=== PATIENT | female | born 2000 | race African-American/Black ===

== ENCOUNTER 2019-11-18 03:03 | Emergency (ER) | payer MEDICAID, OTHER ==
[~2019-11-18] VITALS: Ht 170.2 cm; Wt 114.7 kg
[2019-11-18] MEDS ORDERED: IPRATROPIUM 0.5MG/ALBUTEROL 2.5MG INH SOL UD 3ML (DUONEB)(J7620) NEB ONE (04:30)
[2019-11-18] MEDS ORDERED: ALBUTEROL 90 MCG/ACT 8GM HFA INHALER INH ONE (05:45)
[2019-11-18 05:49] VITALS: BP 110/58
--- NOTE | 2019-11-18 07:05 | REP ---
Clinical: Cough . Comparison: None . Technique: PA and lateral. Findings: The mediastinum and cardiac silhouette are normal. The lung causey are clear and without acute consolidation, effusion, or pneumothorax. The skeletal structures are intact and normal. Impression: 1. No acute cardiopulmonary process. Electronically Signed by Cristian Beth MD 11/18/2019 06:57 A
--- NOTE | 2019-11-19 14:21 | ECGEPIP ---
[facility] - ED Test Date: 2019-11-18 Pat Name: BROOK MARTINEZ Department: Room: - Gender: Female Pr Manager: AWILDA : 2000 Requested By: JOHANN Lees Order Number: [id number] Reading MD: Tonio Waller Measurements Intervals [place] Rate: 87 P: 53 MI: 161 QRS: 27 QRSD: 79 T: 29 QT: 356 QTc: 430 Interpretive Statements SINUS RHYTHM Comparison tracing not on file Electronically Signed on 11-19-2019 14:20:52 EST by Tonio Waller
== END 2019-11-18 05:50 | disposition home or self-care (01) ==
LOC: M ED 03:03
DX: J20.9 Acute bronchitis, unspecified (principal); F41.9 Anxiety disorder, unspecified

== ENCOUNTER → 2020-01-21 | Outpatient (REF) | payer OTHER | LOC: M LAB REF 16:40 | PROVIDERS: ATTEND Physician Assistant | DX: J02.9 Acute pharyngitis, unspecified (principal) ==

== ENCOUNTER → 2020-07-16 | Outpatient (REF) | payer OTHER ==
[~2020-07-16] MED LIST: MAGICMW SSP; METR-265 PO; VENTAER INH
[2020-07-16 17:04] LABS: CHLAMYDIA DNA AMPLIFICATION NEGATIVE (NEGATIVE); GC DNA AMPLIFICATION NEGATIVE (NEGATIVE)
== END ==
LOC: M LAB REF 12:00
PROVIDERS: ATTEND Physician Assistant Medical
DX: Z20.2 Contact with and (suspected) exposure to infections with a predominantly sexual mode of transmission (principal)

== ENCOUNTER 2020-07-17 08:31 | Emergency (ER) | payer OTHER ==
[~2020-07-17] VITALS: Ht 172.7 cm; Wt 119.2 kg
[2020-07-17] MEDS ORDERED: METR-265 PO (08:41)
[2020-07-17 11:03] LABS: HEPATITIS B SURFACE ANTIBODY POSITIVE (POSITIVE); HEPATITIS B SURFACE ANTIGEN NEGATIVE (NEGATIVE); HEPATITIS C VIRUS ABY INDEX 0.2 INDEX (<0.8); HIV 1&2 SCREEN CENTAUR NEGATIVE (NEGATIVE)
[2020-07-17 11:59] LABS: CHLAMYDIA DNA AMPLIFICATION NEGATIVE (NEGATIVE); GC DNA AMPLIFICATION NEGATIVE (NEGATIVE)
[2020-07-17] MEDS ORDERED: MAGICMW SSP (12:34)
[2020-07-17 12:36] VITALS: BP 128/72
== END 2020-07-17 12:47 | disposition home or self-care (01) ==
LOC: M ED 08:31
DX: Z11.3 Encounter for screening for infections with a predominantly sexual mode of transmission (principal); K13.70 Unspecified lesions of oral mucosa; Z79.51 Long term (current) use of inhaled steroids

== ENCOUNTER 2020-07-30 08:52 | Emergency (ER) | payer OTHER ==
[~2020-07-30] VITALS: Ht 170.2 cm; Wt 118.9 kg
[~2020-07-30 08:52] MED LIST changes: -VENTAER INH
--- NOTE | 2020-07-30 09:45 | REPVR ---
PROCEDURE INFORMATION: Exam: XR Chest, 2 Views Exam date and time: 07/30/2020 9:30 AM Age: 19 years old Clinical indication: Chest pain; Additional info: SOB TECHNIQUE: Imaging protocol: XR of the chest Views: 2 views. COMPARISON: CR Chest, 2 view PA, Lat 11/18/2019 4:29 AM FINDINGS: Lungs: Unremarkable. No consolidation. Pleural space: Unremarkable. No pleural effusion. No pneumothorax. Heart/Mediastinum: The cardiomediastinal silhouette is fairly stable in appearance. Bones/joints: Unremarkable. IMPRESSION: No evidence for acute pulmonary disease. Electronically signed by: George Wood On 07/30/2020 09:44:51 AM
[2020-07-30 09:56] LABS: BASO % 0.5 % (0.0-1.0); EOS # 0.1 10^3/uL (0.0-0.5); HEMATOCRIT 39.3 % (36.0-47.0); HEMOGLOBIN 12.9 g/dl (12.0-15.5); LYMPH # 1.3 10^3/uL (1.5-5.0); LYMPH % 28.6 % (24.0-44.0); MEAN CORPUSCULAR HEMOGLOBIN 27.8 pg (27.0-33.0); MEAN CORPUSCULAR HGB CONC 32.8 g/dl (32.0-36.5); MEAN CORPUSCULAR VOLUME 84.7 fl (80.0-96.0); MONO # 0.3 10^3/uL (0.0-0.8); MONO % 7.7 % (0.0-5.0); NEUTROPHILS # 2.7 10^3/uL (1.5-8.5); PLATELET COUNT, AUTOMATED 273 10^3/uL (150-450); RED BLOOD COUNT 4.64 10^6/uL (4.00-5.40); WHITE BLOOD COUNT 4.4 10^3/uL (4.0-10.0)
[2020-07-30 10:16] LABS: BLOOD UREA NITROGEN 11 MG/DL (7-18); C REACTIVE PROTEIN QUANTITATIV 0.44 MG/DL (0.00-0.30); CALCIUM LEVEL 8.7 MG/DL (8.5-10.1); CARBON DIOXIDE LEVEL 27 MEQ/L (21-32); CHLORIDE LEVEL 107 MEQ/L (98-107); CREATININE FOR GFR 0.82 MG/DL (0.55-1.30); GLOMERULAR FILTRATION RATE > 60.0 (>60); GLUCOSE, FASTING 91 MG/DL (70-100); POTASSIUM SERUM 4.3 MEQ/L (3.5-5.1); SODIUM LEVEL 139 MEQ/L (136-145)
[2020-07-30 10:17] LABS: ERYTHROCYTE SEDIMENTATION RATE 16 mm/hr (0-20)
[2020-07-30] MEDS ORDERED: VENTAER INH (10:41)
[2020-07-30 10:46] VITALS: BP 117/69
[2020-08-01 20:10] LABS: HSV IgM TYPES 1&2 <0.91 Ratio (0.00-0.90)
== END 2020-07-30 10:47 | disposition home or self-care (01) ==
LOC: M ED 08:52
DX: R06.00 Dyspnea, unspecified (principal); B34.9 Viral infection, unspecified; M54.9 Dorsalgia, unspecified; Z79.51 Long term (current) use of inhaled steroids

== ENCOUNTER 2020-08-10 03:44 | Emergency (ER) | payer OTHER ==
[~2020-08-10] VITALS: Ht 170.2 cm; Wt 119.3 kg
[~2020-08-10 03:44] MED LIST changes: +VENTAER INH
[2020-08-10 04:55] VITALS: BP 130/76
[2020-08-10] MEDS ORDERED: hydrOXYzine 25 MG TAB PO ONE (05:00)
== END 2020-08-10 05:06 | disposition home or self-care (01) ==
LOC: M ED 03:44
DX: F41.1 Generalized anxiety disorder (principal); Z71.1 Person with feared health complaint in whom no diagnosis is made; Z79.51 Long term (current) use of inhaled steroids

== ENCOUNTER 2021-04-29 20:54 | Emergency (ER) | payer OTHER ==
[~2021-04-29] VITALS: Ht 167.6 cm; Wt 119.2 kg
[2021-04-29] MEDS ORDERED: BUPR300T92 PO (21:07)
[2021-04-29 23:33] VITALS: BP 138/79
[2021-04-30] MEDS ORDERED: ALL10TAB2 PO (00:34)
== END 2021-04-30 00:48 | disposition home or self-care (01) ==
LOC: M ED 20:54
DX: R21 Rash and other nonspecific skin eruption (principal); T78.40XA Allergy, unspecified, initial encounter; Y92.9 Unspecified place or not applicable; Y93.9 Activity, unspecified; J45.909 Unspecified asthma, uncomplicated

== ENCOUNTER 2022-05-26 18:55 | Emergency (ER) | payer OTHER ==
[~2022-05-26] VITALS: Ht 170.2 cm; Wt 122.7 kg
[~2022-05-26 18:55] MED LIST changes: +ALL10TAB2 PO; +BUPR300T92 PO
[2022-05-26 20:30] LABS: BASO % 0.6 % (0.0-1.0); EOS # 0.1 10^3/uL (0.0-0.5); EOS % 2.9 % (0.0-3.0); HEMATOCRIT 37.5 % (36.0-47.0); HEMOGLOBIN 12.3 g/dl (12.0-15.5); LYMPH # 1.4 10^3/uL (1.5-5.0); LYMPH % 28.1 % (24.0-44.0); MEAN CORPUSCULAR HEMOGLOBIN 28.2 pg (27.0-33.0); MEAN CORPUSCULAR HGB CONC 32.8 g/dl (32.0-36.5); MONO # 0.4 10^3/uL (0.0-0.8); NEUTROPHILS # 2.9 10^3/uL (1.5-8.5); NEUTROPHILS % 60.2 % (36.0-66.0); PLATELET COUNT, AUTOMATED 273 10^3/uL (150-450); RED BLOOD COUNT 4.36 10^6/uL (4.00-5.40); WHITE BLOOD COUNT 4.9 10^3/uL (4.0-10.0)
[2022-05-26 21:00] LABS: ALBUMIN 3.7 GM/DL (3.2-5.2); BILIRUBIN,DIRECT 0.1 MG/DL (0.0-0.2); BILIRUBIN,TOTAL 0.5 MG/DL (0.2-1.0); TOTAL PROTEIN 7.3 GM/DL (6.4-8.2)
[2022-05-26] MEDS ORDERED: OMEP40CA4 PO (22:10)
[2022-05-26 22:24] VITALS: BP 134/91
== END 2022-05-26 22:26 | disposition home or self-care (01) ==
LOC: M ED 18:55
DX: R10.10 Upper abdominal pain, unspecified (principal); Z79.51 Long term (current) use of inhaled steroids; Z97.5 Presence of (intrauterine) contraceptive device

== ENCOUNTER → 2024-06-30 | Outpatient (CLI) | payer OTHER ==
[~2024-06-30] MED LIST changes: +BUPR-597 PO; -BUPR300T92 PO; +OMEP40CA4 PO
[2024-06-30 13:23] LABS: BASO % 0.6 % (0.0-1.0); EOS # 0.4 10^3/uL (0.0-0.5); EOS % 7.2 % (0.0-3.0); HEMATOCRIT 39.7 % (36.0-47.0); HEMOGLOBIN 12.8 g/dl (12.0-15.5); LYMPH # 1.6 10^3/uL (1.5-5.0); LYMPH % 33.1 % (24.0-44.0); MEAN CORPUSCULAR HEMOGLOBIN 28.4 pg (27.0-33.0); MEAN CORPUSCULAR HGB CONC 32.2 g/dl (32.0-36.5); MONO # 0.4 10^3/uL (0.0-0.8); MONO % 8.2 % (2.0-8.0); NEUTROPHILS # 2.5 10^3/uL (1.5-8.5); NEUTROPHILS % 50.7 % (36.0-66.0); PLATELET COUNT, AUTOMATED 278 10^3/uL (150-450); RED BLOOD COUNT 4.51 10^6/uL (4.00-5.40); WHITE BLOOD COUNT 4.9 10^3/uL (4.0-10.0)
[2024-06-30 13:28] LABS: ALBUMIN 3.7 G/DL (3.2-5.2); ALKALINE PHOSPHATASE 76 U/L (46-116); ALT/SGPT 13 U/L (7.0-40); AST/SGOT 12 U/L (<34); BLOOD UREA NITROGEN 11 MG/DL (9-23); CARBON DIOXIDE LEVEL 28 MMOL/L (20-31); CHLORIDE LEVEL 106 MMOL/L (98-107); CHOLESTEROL LEVEL 134 MG/DL (<200); CHOLESTEROL RISK RATIO 5.09 (<5); CREATININE FOR GFR 0.79 MG/DL (0.55-1.30); GLOMERULAR FILTRATION RATE > 60.0 (>60); GLUCOSE, FASTING 88 MG/DL (60-100); HDL CHOLESTEROL 26.3 MG/DL (>40); LDL CHOLESTEROL 84.3 MG/DL (<100); NON-HDL-C 107.7 MG/DL; POTASSIUM SERUM 4.3 MMOL/L (3.5-5.1); SODIUM LEVEL 139 MMOL/L (136-145); TOTAL PROTEIN 7.1 G/DL (5.7-8.2); TRIGLYCERIDES LEVEL 117 MG/DL (<150)
[2024-06-30 13:33] LABS: THYROID STIMULATING HORMONE 1.296 uIU/ML (0.55-4.78)
== END ==
LOC: M PLALAB 09:56
PROVIDERS: ATTEND Nurse Practitioner Family
DX: R53.83 Other fatigue (principal); Z13.220 Encounter for screening for lipoid disorders

== ENCOUNTER → 2024-09-23 | Outpatient (REF) | payer OTHER, MEDICAID | LOC: M SFHCWAGY 15:29 | PROVIDERS: ATTEND Nurse Practitioner Family | DX: Z12.4 Encounter for screening for malignant neoplasm of cervix (principal) ==

== ENCOUNTER → 2025-01-20 | Outpatient (CLI) | payer OTHER ==
[2025-01-20 14:21] LABS: BASO % 0.6 % (0.0-1.0); EOS # 0.3 10^3/uL (0.0-0.5); EOS % 6.5 % (0.0-3.0); HEMATOCRIT 41.3 % (36.0-47.0); HEMOGLOBIN 13.4 g/dl (12.0-15.5); LYMPH # 1.5 10^3/uL (1.5-5.0); LYMPH % 30.4 % (24.0-44.0); MEAN CORPUSCULAR HEMOGLOBIN 28.3 pg (27.0-33.0); MEAN CORPUSCULAR HGB CONC 32.4 g/dl (32.0-36.5); MEAN CORPUSCULAR VOLUME 87.1 fl (80.0-96.0); MONO # 0.4 10^3/uL (0.0-0.8); MONO % 8.7 % (2.0-8.0); NEUTROPHILS # 2.7 10^3/uL (1.5-8.5); NEUTROPHILS % 53.6 % (36.0-66.0); PLATELET COUNT, AUTOMATED 290 10^3/uL (150-450); RED BLOOD COUNT 4.74 10^6/uL (4.00-5.40)
[2025-01-20 14:24] LABS: THYROID STIMULATING HORMONE 2.469 uIU/ML (0.55-4.78)
[2025-01-20 14:26] LABS: ALBUMIN 3.6 G/DL (3.2-5.2); ALKALINE PHOSPHATASE 84 U/L (35-104); ALT/SGPT 17 U/L (7.0-40); AST/SGOT 12 U/L (<34); BILIRUBIN,TOTAL 0.5 MG/DL (0.3-1.2); BLOOD UREA NITROGEN 13 MG/DL (9-23); CALCIUM LEVEL 9.2 MG/DL (8.5-10.1); CARBON DIOXIDE LEVEL 27 MMOL/L (20-31); CHLORIDE LEVEL 106 MMOL/L (98-107); CHOLESTEROL LEVEL 130 MG/DL (<200); CHOLESTEROL RISK RATIO 4.92 (<5); CREATININE FOR GFR 0.73 MG/DL (0.55-1.30); GLOMERULAR FILTRATION RATE > 60.0 (>60); GLUCOSE, FASTING 99 MG/DL (60-100); HDL CHOLESTEROL 26.4 MG/DL (>40); LDL CHOLESTEROL 85.2 MG/DL (<100); NON-HDL-C 103.6 MG/DL; POTASSIUM SERUM 4.5 MMOL/L (3.5-5.1); SODIUM LEVEL 140 MMOL/L (136-145); TOTAL PROTEIN 7.1 G/DL (5.7-8.2); TRIGLYCERIDES LEVEL 92 MG/DL (<150)
== END ==
LOC: M PLALAB 10:25
PROVIDERS: ATTEND Nurse Practitioner Family
DX: E78.2 Mixed hyperlipidemia (principal)